=== PATIENT | female | born 1985 | race Caucasian/White ===

== ENCOUNTER 2020-02-13 11:47 | Emergency (ER) | payer OTHER, SELFPAY ==
--- NOTE | ~2020-02-13 | XR_ITS ---
EXAMINATION: XR wrist LT min 3V DATE: 02/13/2020 12:14 INDICATION: Ulnar-sided left wrist pain 2 weeks post trauma TECHNIQUE: Posteroanterior, ulnar deviation, oblique, and lateral views of the left wrist were obtain ed. COMPARISON: none FINDINGS: Bone alignment is normal. No fracture. Joint spaces are normal. Lucent cystic change with thin sclero tic margins at the proximal pole of the scaphoid. No evident cortical erosions. Soft tissues are unre markable. IMPRESSION: 1. No acute osseous abnormality. Reviewed, dictated and finalized at location A.
[2020-02-13 11:59] VITALS: BP 122/76; PULSE 76; RESP 20; TEMP 37.1; O2SAT 100
--- NOTE | 2020-02-13 12:04 | ED.GENADULT ---
HPI - General Adult General Chief complaint: Extremity Injury, Upper Stated complaint: wrist pain Time Seen by Provider: 02/13/20 12:07 Source: patient Mode of arrival: ambulatory Limitations: no limitations History of Present Illness HPI narrative: 34-year-old female patient presents to the [facility] with complaints of left wrist pain. Patient states she was playing kickball about 2 weeks ago and states she was hit by the kickball and went to go backwards using her left hand to brace her fall when she fell backwards. Patient states since then she has been having left wrist pain. Denies any Tylenol or ibuprofen or icing the wrist at all. Patient states she did get a brace from [employer] that she has been wearing to help with the pain. Patient denies any numbness or tingling to the fingertips. Related Data Home Medications Medication Instructions Recorded Confirmed No Home Medications 02/13/20 02/13/20 Allergies Allergy/AdvReac Type Severity Reaction Status Date / Time No Known Allergies Allergy Verified 02/13/20 12:03 Review of Systems Review of Systems: Narrative: CONSTITUTIONAL: Denies fever, chills, or sweats. EYES: Denies visual changes, redness, or discharge. ENT: Denies rhinorrhea, congestion, sore throat, or otalgia. CARDIOVASCULAR: Denies chest pain, palpitations, or edema. RESPIRATORY: Denies cough or dyspnea. GASTROINTESTINAL: Denies abdominal pain, nausea, vomiting, or diarrhea. GENITOURINARY: Denies dysuria or hematuria. SKIN: Denies rash or itching. MUSCULOSKELETAL: Denies back pain, joint pain, or myalgia. Positive left wrist pain NEUROLOGIC: Denies headache, numbness, or weakness. PSYCHIATRIC: Denies anxiety or depression. PMFSH Social History Social History Gender identity (if verbalized by the patient): Female Comments At the time of my signature I agree with nursing past medical history, surgical, social, and family history. There is no relevant family history pertinent to the presenting complaint. Exam Narrative: Exam Narrative: GENERAL: Well-appearing, well-nourished, and in no acute distress. HEAD: Normocephalic, atraumatic. EYES: PERRLA and EOMI. ENT: Nares clear, no rhinorrhea or epistaxis. Mucous membranes moist. NECK: Supple. No lymphadenopathy CHEST: Clear to auscultation. No respiratory distress. HEART: Regular rate and rhythm. No murmur heard. Normal peripheral pulses. ABDOMEN: Soft, nontender, nondistended, normal active bowel sounds. EXTREMITIES: The L wrist is without obvious asymmetry or deformity when compared to the R wrist. No surface trauma, open wounds, swelling, or obvious deformity. No overlying erythema or warmth. No bony crepitus. Patient does have an area of tenderness on the anterior side of the left wrist on the ulnar portion. Patient does have pain there with palpation. No scaphoid fullness or tenderness to direct palpation or axial load. Normal flex/extension, ulnar/radial deviation. Motor/sensory function of ulnar, radial, median nerves intact. Ulnar and radial pulses intact. Negaitve Phalen's/Tinel's sign. Negative Ann Marie test. SKIN: Warm, dry, no rash. NEURO: No focal deficits. Alert and oriented x3. Course Reevaluation(s) Reevaluation #1: Reevaluated patient after her x-ray had resulted. Discussed with her that there is no acute fractures noted at this time. Discussed with patient that she most likely sprained her wrist. Discussed with patient she can follow-up with her primary doctor or the orthopedic surgeon for further evaluation and treatment. Discussed with patient I highly encouraged her to take some Tylenol ibuprofen to help with pain and she can continue wearing her splint as needed. Discussed with patient that if she worsens she may need to follow-up with either her primary doctor or I did refer to the orthopedic surgeon for further evaluation and treatment as needed. Discussed with patient eliza
== END 2020-02-13 12:25 | disposition home or self-care (01) ==
PROVIDERS: Emergency Provider Nurse Practitioner Family
DX: S63.502A Unspecified sprain of left wrist, initial encounter (principal); W18.09XA Striking against other object with subsequent fall, initial encounter
CPT/HCPCS: 73110; 99203; G0463

== ENCOUNTER 2022-04-15 11:34 | Emergency (ER) | payer OTHER, SELFPAY ==
[2022-04-15 12:04] VITALS: BP 122/77; PULSE 74; RESP 18; TEMP 36.1; O2SAT 100
--- NOTE | 2022-04-15 12:28 | ED.SKABFB ---
HPI - Skin/Abscess/Foreign Bdy General Chief complaint: Skin/Abscess/Foreign Body Stated complaint: cold sores Time Seen by Provider: 04/15/22 12:15 Source: patient Mode of arrival: ambulatory Limitations: no limitations History of Present Illness HPI narrative: 36-year-old female presents with complaint of cold sores to lips for 3 days. States started with tingling started using Abreva which normally helps but this time is the worse that she has ever had. Called her primary care physician for appointment yesterday but was not able to see her. Reports pain 11/02. All systems reviewed and negative except as noted above. Related Data Allergies Allergy/AdvReac Type Severity Reaction Status Date / Time No Known Allergies Allergy Verified 04/15/22 11:46 Review of Systems Review of Systems: CONSTITUTIONAL: Denies fever, chills, or sweats. EYES: Denies visual changes, redness, or discharge. ENT: Denies rhinorrhea, congestion, sore throat, or otalgia. CARDIOVASCULAR: Denies chest pain, palpitations, or edema. RESPIRATORY: Denies cough or dyspnea. GASTROINTESTINAL: Denies abdominal pain, nausea, vomiting, or diarrhea. GENITOURINARY: Denies dysuria or hematuria. SKIN: Reports cold sores to upper and lower lip. MUSCULOSKELETAL: Denies back pain, joint pain, or myalgia. NEUROLOGIC: Denies headache, numbness, or weakness. PSYCHIATRIC: Denies anxiety or depression. All other systems reviewed are negative, except as documented in HPI. PMFSH Social History Social History Gender identity (if verbalized by the patient): Female Comments At time of signature, agree with nursing past medical, surgical, social and family history. There is no relevant family history pertinent to the presenting complaint. Exam Narrative: GENERAL: This is a well-nourished, well-developed patient, in no apparent distress. HEAD: normocephalic, atraumatic. EYES: PERRL. Sclera clear/white. Vision is grossly intact. EARS: External ears normal NOSE: External nose normal NECK: Neck supple, non-tender without lymphadenopathy, masses or thyromegaly. CARDIOVASCULAR: Regular rate and rhythm without murmurs, gallops, or rubs. RESPIRATORY: Clear to auscultation. Breath sounds equal bilaterally. No wheezes, rales, or rhonchi. SKIN: warm, Dry, intact with no suspicious rash, good texture and turgor. Erythematous vesicles to upper and lower lip, swelling to lips. NEURO: awake, alert, and oriented to person, place and time. There were no obvious focal neurologic abnormalities. EXTREMITIES: No joint tenderness, effusion, or edema noted. Course Course Level of Care: Express Care Visit Vital Signs Vital signs: Vital Signs Temperature 36.1 C L 04/15/22 12:04 Pulse Rate 74 04/15/22 12:04 Respiratory Rate 18 04/15/22 12:04 Blood Pressure 122/77 04/15/22 12:04 Pulse Oximetry 100 04/15/22 12:04 Oxygen Delivery Room Air 04/15/22 12:04 Temperature 36.1 C L 04/15/22 12:04 Pulse Rate 74 04/15/22 12:04 Respiratory Rate 18 04/15/22 12:04 Blood Pressure 122/77 04/15/22 12:04 Pulse Oximetry 100 04/15/22 12:04 Oxygen Delivery Room Air 04/15/22 12:04 Reviewed MDM - Skin/Abscess/Foreign Bdy MDM Narrative Medical decision making narrative: Patient is aware of diagnosis, understands and agrees to treatment plan. Anticipatory guidance given. Patient agrees to follow-up as directed and is aware of reasons to seek care at the emergency department. Portions of this record may have been created with voice recognition software Discharge Plan Discharge Clinical Impression: Cold sore Patient Disposition: Home, Self-Care Condition: Stable Instructions: Oral Herpes Simplex Virus Infections (ED) Additional Instructions: Take medications as prescribed. Take ibuprofen or Tylenol as needed for pain. Avoid irritating foods and beverages until vesicles curry
== END 2022-04-15 12:28 | disposition home or self-care (01) ==
PROVIDERS: Emergency Provider Nurse Practitioner Family
DX: B00.1 Herpesviral vesicular dermatitis (principal); Z85.828 Personal history of other malignant neoplasm of skin
CPT/HCPCS: 99213; G0463